=== PATIENT | male | born 1960 | race Caucasian/White ===

== ENCOUNTER 2022-08-30 17:45 | Emergency (ER) | payer SELFPAY | END 2022-08-30 19:06 | disposition home or self-care (01) | LOC: JP.ED 17:45 | DX: M62.82 Rhabdomyolysis (principal); Z88.6 Allergy status to analgesic agent; Z79.82 Long term (current) use of aspirin; Z79.899 Other long term (current) drug therapy; Z79.84 Long term (current) use of oral hypoglycemic drugs | CPT/HCPCS: 81003; 99282; 99283 ==

== ENCOUNTER 2024-03-30 06:33 | Day surgery (SDC) | payer SELFPAY ==
[2024-03-30] MEDS ORDERED: fentaNYL 50 MCG/ML SDV ONE (07:08)
[2024-03-30] MEDS ORDERED: Propofol 200 MG/20 ML SDV ONE (07:08)
[2024-03-30] MEDS: Sodium Chloride 0.9% 1,000 ML IV SCH (07:27)
== END 2024-03-30 08:46 | disposition home or self-care (01) ==
LOC: JP.SDS 06:33
PROVIDERS: ATTEND Surgery
DX: K22.70 Barrett's esophagus without dysplasia (principal); K20.90 Esophagitis, unspecified without bleeding; K22.89 Other specified disease of esophagus; I10 Essential (primary) hypertension; I25.10 Atherosclerotic heart disease of native coronary artery without angina pectoris
CPT/HCPCS: 00731-QZ; 88305; J2704; J3010; J7030